=== PATIENT | female | born 1950 | race Caucasian/White ===

== ENCOUNTER 2023-09-12 14:26 | Inpatient (IN) | payer MEDICARE, SELFPAY ==
[2023-09-12] VITALS (37 sets, daily range): BP systolic 110–166; BP diastolic 61–93; PULSE 94–124; RESP 15–33; TEMP 36.6–37.1; O2SAT 90–100; BMI 24.0; BMI 23.8
--- NOTE | 2023-09-12 15:19 | XRR_ITS ---
PROCEDURE INFORMATION: Exam: XR Chest Exam date and time: 09/12/2023 3:26 PM Age: 72 years old Clinical indication: Shortness of breath; Patient HX: Severe SOB; Asthma TECHNIQUE: Imaging protocol: Radiologic exam of the chest. Views: 1 view. COMPARISON: No relevant prior studies available. FINDINGS: Lungs: Hyperinflated lungs. No consolidation. Pleural spaces: Unremarkable. No pleural effusion. No pneumothorax. Heart/Mediastinum: Unremarkable. No cardiomegaly. Bones/joints: Unremarkable. XR/XR chest 1V portable [id number] IMPRESSION: Hyperinflated lungs. Otherwise, no acute findings.
--- NOTE | 2023-09-12 15:24 | ECG_ITS ---
[facility] Test Date: 2023-09-12 Pat Name: Sofiya Domingo Department: Room: Gender: Female Manager Market Development: : 1950 Requested By: Svetlana Anderson Order Number: [id number] Reading MD: Precious Jacobo M.D. Measurements Intervals [place] Rate: 123 P: 76 OK: 136 QRS: 70 QRSD: 98 T: 49 QT: 299 QTc: 429 Interpretive Statements SINUS TACHYCARDIA MINIMAL ST DEPRESSION [0.025+ mV ST DEPRESSION] ABNORMAL RHYTHM ECG No previous ECG available for comparison Electronically Signed On 09-14-2023 18:43:46 PACKAGE DRIER by Precious Jacobo M.D. [id number]
--- NOTE | 2023-09-12 15:32 | ED_ITS ---
HPI - SOB/Dyspnea General: Chief Complaint: Shortness of Breath/Dyspnea Stated Complaint: SOB Time Seen by Provider: 09/12/23 15:14 History of Present Illness: HPI Narrative: Patient is a 72-year-old female that presents to the emergency department with shortness of breath and wheezing for several days. Patient reports symptoms just worsened today. Patient denies medical history. Patient is unable to talk in full sentences. Her spouse answers questions for us. He denies any medical history. She has an inhaler that she receives from a walk-in clinic. She has some type of respiratory issue. Unsure of its COPD or asthma. Patient is tachypneic, tachycardic, and hypoxic. Review of Systems Narrative: Unable to get a full review of systems. Patient denies fevers She reports shortness of breath, wheezing, cough. BELL and back pain intermittently Physical Exam Const: COMMON NORMALS: no acute distress, patient oriented x3 and alert GENERAL APPEARANCE: cooperative ORIENTATION/CONSCIOUSNESS: Yes awake, Yes oriented to person, Yes oriented to place and Yes oriented to time HENMT: COMMON NORMALS: normocephalic and atraumatic HEAD & SCALP: normocephalic and atraumatic FACE & SINUS: normal facial exam MOUTH: Normal oral and palatal mucosa present THROAT: posterior oropharynx normal Eye: COMMON NORMALS: Equal, round and reactive pupils present, EOMs intact bilaterally, conjunctivae normal and no scleral icterus GENERAL EYE: appearance normal, both eyes and all related structures ALIGNMENT: Yes alignment normal PERIORBITAL: periorbital findings normal CONJUNCTIVA: Yes conjunctivae normal PUPIL: Yes Equal, round and reactive pupils present Neck/C-Spine: COMMON NORMALS: full ROM GENERAL: Yes normal visual inspection Lymph: LYMPHATIC: no lymphadenopathy noted Chest: COMMONS NORMALS: normal inspection of the chest Breast/axilla inspection: Yes no chest deformity, asymmetry, normal contours, no nodules, masses, tenderness Resp: EFFORT & INSPECTION: No able to speak in complete sentences, Yes symmetric chest movement, Yes tachypneic, Yes respiratory distress, Yes labored, Yes retractions, Yes uses accessory muscles, Yes audible wheezes and Yes tripod positioning AUSCULTATION: wheezes and diminished lung sounds Cardio: COMMON NORMALS: regular rhythm and Peripheral pulses 2+ throughout RATE: tachycardic (120s) RHYTHM: regular rhythm PERIPHERAL PULSES: Peripheral pulses 2+ throughout GI: COMMON NORMALS: Normal to inspection, nondistended, normoactive bowel sounds present, Soft to palpation, non-tender and No hepatosplenomegaly present INSPECTION: Yes normal to inspection AUSCULTATION: Yes normoactive bowel sounds PALPATION: Yes Soft to palpation and Yes No hepatosplenomegaly present RECTAL EXAM: deferred Extremity: COMMON NORMALS: normal to inspection GENERAL: Yes normal exam except as noted Neuro: COMMON NORMALS: patient oriented x3 SENSORIUM/ORIENTATION: Yes alert, Yes oriented to person, Yes oriented to place and Yes oriented to time CRANIAL NERVES: Yes CN normal except as noted Psych: COMMON NORMALS: mental status grossly normal, Normal thought process present, cooperative, activity/motor behavior normal, denies homicidal ideation and denies suicidal ideation THOUGHT PROCESS: Normal thought process present Skin: COMMON NORMALS: no rashes or lesions noted, no wounds and turgor normal GENERAL SKIN EXAM: no rashes or lesions noted and turgor normal Course Vital Signs: Vital signs: Vital Signs Temperature 98.8 F 09/12/23 14:34 Pulse Rate 121 H 09/12/23 19:50 Respiratory Rate 18 09/12/23 19:50 Blood Pressure 110/77 09/12/23 19:50 Pulse Oximetry 98 09/12/23 19:50 Oxygen Delivery Me thod Nasal Cannula 09/12/23 18:39 Oxygen Flow Rate 4 09/12/23 18:39 Fraction of Inspir ed Oxygen 40 09/12/23 19:05 MDM - SOB/Dyspnea Medical Decision Making Patient was evaluated in the emergency department for shortness of breath t achypnea and hypoxia Patient has a differential diagnosis of COPD, COVID, influenza, pneumonia, asth ma. Patient denies fevers. She underwent laboratory evaluation reading treatments and ended up on BiPAP. I involved my attending early on in the case. He recommended the addition of CTA chest troponin series EKG and BMP. CTA reveals bronchial wall thickening suggestive of bronchitis with scattered areas of mucous plugging. There is hyperinflated lungs. Patient has negative COVID and influenza. We repeated her ABG which shows improvement in pH but still has a negative base. I spoke with the hospitalist who has accepted the patient and will admit to ICU. Family updated Dr. Whyte to place orders Lab Data 09/12/23 15:42 09/12/23 15:42 Labs/Radiology: Radiology Impressions Chest X-Ray 09/12/23 15:19 IMPRESSION: Hyperinflated lungs. Otherwise, no acute findings. Chest CTA 09/12/23 17:35 IMPRESSION: Bronchial wall thickening suggestive of bronchitis with scattered areas of mucous plugging. Laboratory Results WBC 10.79 10^3/uL (3.29-11.43) 09/12/23 15:42 RBC 4.85 10^6/uL (3.85-5.65) 09/12/23 15:42 Hgb 15.10 g/dL (11.27-16.99) 09/12/23 15:42 Hct 46.5 % (36-47) 09/12/23 15:42 MCV 95.9 fl (85-98) 09/12/23 15:42 MCH 31.1 pg (27-33) 09/12/23 15:42 MCHC 32.5 g/dL (30-55) 09/12/23 15:42 RDW 13.2 % (12.1-15.1) 09/12/23 15:42 Plt Count 282 10^3/cmm (157-399) 09/12/23 15:42 MPV 9.2 fL (7.4-10.4) 09/12/23 15:42 Neut % (Auto) 83.3 % 09/12/23 15:42 Lymph % (Auto) 5.4 % 09/12/23 15:42 Manati % (Auto) 9.4 % 09/12/23 15:42 Eos % (Auto) 1.0 % 09/12/23 15:42 Baso % (Auto) 0.6 % 09/12/23 15:42 Neut # (Auto) 8.99 10^3/uL (1.8-7.7) H 09/12/23 15:42 Lymph # (Auto) 0.6 10^3/uL (0.8-4.8) L 09/12/23 15:42 Manati # (Auto) 1.0 10^3/uL (0.2-0.9) H 09/12/23 15:42 Eos # (Auto) 0.1 10^3/uL (0.0-0.8) 09/12/23 15:42 Baso # (Auto) 0.1 10^3/uL (0.0-0.1) 09/12/23 15:42 Nucleated RBC % (auto) 0 % 09/12/23 15:42 Nucleated RBCs # 0.0 /100WBC 09/12/23 15:42 Specimen Type Arterial 09/12/23 20:05 Sample Site Radial, right 09/12/23 20:05 ABG pH 7.38 (7.35-7.45) 09/12/23 20:05 ABG pCO2 35.0 mmHg (35-45) 09/12/23 20:05 ABG pO2 121.0 mmHg (80.0-100.0) H 09/12/23 20:05 ABG PO2/FiO2 Ratio 0 09/12/23 20:05 ABG HCO3 20.8 mmol/L (22-26) L 09/12/23 20:05 ABG O2 Saturation 98.9 09/12/23 20:05 ABG Base Excess -3.6 mmol/L (-2.0-2.0) L 09/12/23 20:05 Arnel Test Pos 09/12/23 20:05 A-a O2 Gradient 15.8 mmHg (5-10) H 09/12/23 20:05 Hematocrit 45.0 % (37-47) 09/12/23 20:05 Hgb O2 Saturation 97.9 % (95-100) 09/12/23 20:05 Carboxyhemoglobin 0.4 %THgb (0.4-20.1) 09/12/23 20:05 Methemoglobin 0.7 % (0.4-1.5) 09/12/23 20:05 Total Hemoglobin 14.7 g/dL (12-16) 09/12/23 20:05 Sodium 140.0 mmol/L (131-143) 09/12/23 20:05 Potassium 3.0 mmol/L (3.5-5.0) L 09/12/23 20:05 Glucose 227.0 mg/dL (70-115) H 09/12/23 20:05 Ionized Calcium 1.2 mmol/L (1.1-1.4) 09/12/23 20:05 O2 Delivery Device Bipap 09/12/23 20:05 O2 Liters/Min 3.0 % 09/12/23 15:53 FiO2 40.0 % 09/12/23 20:05 Orthopedic Dentist ID [email or web address] 09/12/23 20:05 Sodium 137 mmol/L (136-145) 09/12/23 15:42 Potassium 3.8 mmol/L (3.5-5.1) 09/12/23 15:42 Chloride 103 mmol/L (98-107) 09/12/23 15:42 Carbon Dioxide 23 mmol/L (22-29) 09/12/23 15:42 Anion Gap 14.8 (5-19) 09/12/23 15:42 BUN 10 mg/dL (8-23) 09/12/23 15:42 Creatinine 0.6 mg/dL (0.5-0.9) 09/12/23 15:42 GFR Calculation Not Reportable 09/12/23 15:42 Glucose 143 mg/dL (65-115) H 09/12/23 15:42 Calculated Osmolality 286 mOsm/kg (285-295) 09/12/23 15:42 Calcium 9.1 mg/dL (8.5-10.5) 09/12/23 15:42 Total Bilirubin 0.3 mg/dL (0.15-1.2) 09/12/23 15:42 AST 20 U/L (0-32) 09/12/23 15:42 ALT 20 U/L (0-33) 09/12/23 15:42 Alkaline Phosphatase 113 U/L (35-105) H 09/12/23 15:42 Troponin T Baseline 7 ng/L (0-10) 09/12/23 15:42 Troponin T 120 Minute 11.17 ng/L (0-10) H 09/12/23 17:47 Delta Troponin T 4.17 ABS# (0-10) 09/12/23 17:47 NT-Pro-B Natriuret Pep 76 pg/mL (0-125) 09/12/23 15:42 Total Protein 7.6 g/dL (6.6-8.7) 09/12/23 15:42 Albumin 4.3 g/dL (3.5-5.2) 09/12/23 15:42 Globulin 3.3 g/dL (1.3-4.6) 09/12/23 15:42 Influenza Type A Ag negative (Negative) 09/12/23 18:21 Influenza Type B Ag negative (Negative) 09/12/23 18:21 SARS-CoV-2 Ag (Rapid) negative (Negative) 09/12/23 18:21 All radiology interpretation(s) finalized by discharge Discharge Plan Discharge Patient Disposition: Admitted As Inpatient Clinical Impression: Respiratory failure, Bronchitis, Hypoxia, Tachycardia Condition: Stable Discharge Diet: Advance as tolerated Discharge Activity: Resume usual activity Coding Level of Care Code ED Evp And Chief Operating Officer for Daisy Martinez
[2023-09-12] MEDS: ipratropium-albuterol 3 mL Neb INHALATION ×6 (15:41→18:39)
[2023-09-12] MEDS: methylPREDNISolone sod succ 125 MG in water for injection-sterile 2 ML 24 MG IVP (16:02)
[2023-09-12 16:07] LABS: Basophils # 0.1 10^3/uL (0.0-0.1); Basophils % 0.6 %; Eosinophils # 0.1 10^3/uL (0.0-0.8); Hematocrit 46.5 % (36-47); Lymphocytes # 0.6 10^3/uL (0.8-4.8); Lymphocytes % 5.4 %; Mean Corpuscular HGB Conc 32.5 g/dL (30-55); Mean Corpuscular Hemoglobin 31.1 pg (27-33); Mean Corpuscular Volume 95.9 fl (85-98); Mean Platelet Volume 9.2 fL (7.4-10.4); Monocytes % 9.4 %; Neutrophils # 8.99 10^3/uL (1.8-7.7); Neutrophils % 83.3 %; Nucleated Red Blood Cells % 0 %; Platelet Count 282 10^3/cmm (157-399); Red Blood Count 4.85 10^6/uL (3.85-5.65); Red Cell Distribution Width 13.2 % (12.1-15.1); White Blood Count 10.79 10^3/uL (3.29-11.43)
[2023-09-12 16:07] LABS: ABG PCO2 47.9 mmHg (35-45); Arterial Blood Gas Hematocrit 46.9 % (37-47); Base Excess ABG -3.2 mmol/L (-2.0-2.0); Blood Gas Allen Test Pos; Blood Gas Operator Identificat AMH; Blood Gas Sample Site Radial, left; Blood Gas Sample Type Arterial; Carboxyhemoglobin 1.1 %THgb (0.4-20.1); HCO3 ABG 23.7 mmol/L (22-26); HGB O2 Sat 94.3 % (95-100); Methemoglobin 0.6 % (0.4-1.5); Oxygen Device NC; PO2 ABG 79.4 mmHg (80.0-100.0); PO2 FiO2 Ratio Arterial Blood 0; Total Hemoglobin 15.3 g/dL (12-16)
[2023-09-12 16:12] LABS: Alanine Aminotransferase 20 U/L (0-33); Albumin Level 4.3 g/dL (3.5-5.2); Alkaline Phosphatase 113 U/L (35-105); Anion Gap 14.8 (5-19); Aspartate Amino Transferase 20 U/L (0-32); Blood Urea Nitrogen 10 mg/dL (8-23); Calcium 9.1 mg/dL (8.5-10.5); Carbon Dioxide 23 mmol/L (22-29); Chloride 103 mmol/L (98-107); Globulin 3.3 g/dL (1.3-4.6); Glucose 143 mg/dL (65-115); Osmolality Calculated 286 mOsm/kg (285-295); Potassium 3.8 mmol/L (3.5-5.1); Sodium 137 mmol/L (136-145); Total Bilirubin 0.3 mg/dL (0.15-1.2); Total Protein 7.6 g/dL (6.6-8.7)
--- NOTE | 2023-09-12 17:35 | CTR_ITS ---
PROCEDURE INFORMATION: Exam: CTA Chest With Contrast Exam date and time: 09/12/2023 6:05 PM Age: 72 years old Clinical indication: Shortness of breath and tachypnea; Patient HX: SOB with tachypnea. History of asthma. ; Additional info: SOB tachycardia TECHNIQUE: Imaging protocol: Computed tomographic angiography of the chest with contrast. Exam focused on the arteries. 3D rendering (Not supervised by radiologist): MIP and/or 3D reconstructed images were created by the technologist. Radiation optimization: All CT scans at this facility use at least one of these dose optimization techniques: automated exposure control; mA and/or kV adjustment per patient size (includes targeted exams where dose is matched to clinical indication); or iterative reconstruction. Contrast material: OMNI 350; Contrast volume: 61 ml; Contrast route: INTRAVENOUS (IV); REPORTING DATA: Count of CT and Cardiac NM exams in prior 12 months: This patient has received 0 known CTs and 0 known cardiac nuclear medicine studies in the 12 months prior to the current study. COMPARISON: CR (CHEST, ) 09/12/2023 3:26 PM RADIATION DOSE METRICS: Total DLP (mGy-cm): 189.12 FINDINGS: Pulmonary arteries: Normal. No pulmonary emboli. Aorta: Unremarkable. No aortic aneurysm. No aortic dissection. Lungs: Scattered areas of mucous plugging noted within the lungs. Bronchial wall thickening noted. No consolidation. No masses. Pleural spaces: Unremarkable. No pneumothorax. No pleural effusion. Heart: Unremarkable. No cardiomegaly. No pericardial effusion. Lymph nodes: Unremarkable. No enlarged lymph nodes. Bones/joints: Unremarkable. No acute fracture. Soft tissues: Unremarkable. CT/CT angio chest PE protcl [id number] IMPRESSION: Bronchial wall thickening suggestive of bronchitis with scattered areas of mucous plugging.
[2023-09-12 17:58] LABS: Troponin(5th) Baseline 7 ng/L (0-10)
[2023-09-12 18:08] LABS: NT Pro B Type Natriuretic Pept 76 pg/mL (0-125)
[2023-09-12] MEDS: iohexol 350 mg/mL 500 mL Btl (per mL) IV (18:08)
[2023-09-12 18:11] LABS: Troponin 5 2HR 11.17 ng/L (0-10); Troponin 5 2HR Delta 4.17 ABS# (0-10)
[2023-09-12] MEDS: magnesium sulfate premix 2 GM/50 ML PIGGYBACK IV (18:28)
[2023-09-12] MEDS: fentaNYL 50 mcg/mL INJ 2mL IVP (18:28)
[2023-09-12 19:03] LABS: SARS Covid-2 Antigen negative (Negative)
[2023-09-12 19:04] LABS: Influenza A by IFA negative (Negative); Influenza B by IFA negative (Negative)
--- NOTE | 2023-09-12 19:40 | ECG_ITS ---
[facility] Test Date: 2023-09-12 Pat Name: Sofiya Domingo Department: Room: Gender: Female Tax Investigator: : 1950 Requested By: Svetlana Anderson Order Number: [id number] Reading MD: Precious Jacobo M.D. Measurements Intervals [place] Rate: 124 P: 66 NM: 124 QRS: 24 QRSD: 101 T: 40 QT: 336 QTc: 483 Interpretive Statements SINUS TACHYCARDIA POSSIBLE LATERAL MYOCARDIAL INFARCTION , PROBABLY OLD [30 ms Q WAVE IN I/aVL/V5/V6] INFERIOR MYOCARDIAL INFARCTION , PROBABLY OLD [40+ ms Q WAVE AND/OR ST/T ABNORMALITY IN II/aVF] Compared to ECG 09/12/2023 18:20:37 Myocardial infarct finding now present Electronically Signed On 09-15-2023 1:54:09 LIVESTOCK HANDLER by Precious Jacobo M.D. [id number]
[2023-09-12] MEDS: sodium chloride 0.9% 1,000 ML 999 ML IV (20:12)
[2023-09-12 20:17] LABS: ABG PH Result 7.38 (7.35-7.45); Alveolar-Arterial Oxygen Gradi 15.8 mmHg (5-10); Base Excess ABG -3.6 mmol/L (-2.0-2.0); Blood Gas Allen Test Pos; Blood Gas Sample Site Radial, right; Blood Gas Sample Type Arterial; Carboxyhemoglobin 0.4 %THgb (0.4-20.1); HCO3 ABG 20.8 mmol/L (22-26); HGB O2 Sat 97.9 % (95-100); Ionized Calcium Level - ABG 1.2 mmol/L (1.1-1.4); Methemoglobin 0.7 % (0.4-1.5); Oxygen Device BIPAP; Oxygen Saturation ABG 98.9; PO2 FiO2 Ratio Arterial Blood 0; Total Hemoglobin 14.7 g/dL (12-16)
--- NOTE | 2023-09-12 21:18 | P.HP_ITS ---
Providers/Chief Complaint Admitting Physician: Yuri Molina Chief Complaint: SOB History of Present Illness Sofiya Domingo is a 72 year old female without much past medical history apart from a history of asthma, has an albuterol inhaler at home, has had progressive shortness of breath, wheezing over several days, coughing up yellowish sputum, on presentation found to be hypoxic, O2 sats in the 80s, not normally on oxygen. With sinus tachycardia, CT angiogram was obtained without PE. No consolidation. Noted bronchial wall thickening suggestive of bronchitis with scattered areas of mucous plugging. Diminished air entry, severe wheezing bilaterally, received multiple breathing treatments, and requiring BiPAP suppo rt. Review of Systems Const: Denies: fever(s), chills, body aches or malaise ENMT: Denies: throat pain Card: Denies: chest pain, edema, pre-syncope or dyspnea on exertion Resp: Reports: dyspnea, productive cough, wheezing and change in phlegm color; Denies: hemoptysis GI: Denies: abdominal pain, nausea, vomiting, diarrhea, constipation, hematochezia or melena : Denies: flank pain, urinary frequency or hematuria Musc: Denies: back pain, joint swelling or joint redness Skin/Breast: Denies: rash or new lesions Neuro: Denies: headache(s), numbness in extremities, weakness in extremities, dizziness, confusion or seizure-like activity Medications/Allergies Allergies Allergy/AdvReac Type Severity Reaction Status Date / Time azithromycin Allergy Unknown Unknown Verified 09/12/23 20:02 PFSH Acute PFSH: Medical History (Updated 09/12/23 @ 21:39 by Yuri Molina MD) Asthma Social History (Updated 09/12/23 @ 21:37 by Yuri Molina MD) Smoking and tobacco/nicotine status: never used tobacco/nicotine Marital status: Vitals/I&O/Wt Last Vital Signs Temp 98.8 F 09/12/23 14:34 Pulse 121 H 09/12/23 19:50 Resp 18 09/12/23 19:50 BP 110/77 09/12/23 19:50 Pulse Ox 98 09/12/23 19:50 O2 Del Method Nasal Cannula 09/12/23 18:39 O2 Flow Rate 4 09/12/23 18:39 FiO2 40 09/12/23 19:05 Weight last 48 hrs Weight 63.503 kg Physical Exam Narrative: Accompanied by her Const: COMMON NORMALS: patient oriented x3 and alert GENERAL APPEARANCE: cooperative ORIENTATION/CONSCIOUSNESS: Yes awake HENMT: COMMON NORMALS: oropharynx normal Neck/C-Spine: COMMON NORMALS: no JVD Resp: COMMON NORMALS: normal respiratory effort and clear to auscultation bilaterally AUSCULTATION: wheezes and diminished lung sounds OTHER: BiPAP Cardio: COMMON NORMALS: no JVD, regular rhythm, S1 normal heart sound present, S2 normal heart sound present and No murmurs present (Cardio) RHYTHM: regular rhythm HEART SOUNDS: S1 normal heart sound present and S2 normal heart sound present GI: COMMON NORMALS: Normal to inspection, nondistended, normoactive bowel sounds present, Soft to palpation and non-tender PALPATION: Yes Soft to palpation Extremity: COMMON NORMALS: no joint enlargement and no pedal edema Neuro: COMMON NORMALS: patient oriented x3 and moves all extremities SENSORIUM/ORIENTATION: Yes alert Skin: COMMON NORMALS: no rashes or lesions noted GENERAL SKIN EXAM: no rashes or lesions noted Data 09/12/23 15:42 09/12/23 15:42 A&P Assessment and plan (1) Respiratory failure: Secondary to combination bronchitis and severe asthma exacerbation, with diminished air entry, severe wheezing, productive cough, sputum color change. Hypoxic respiratory failure, saturation in 80s, not normally on oxygen. Reviewed vitals, BC, ABG, CMP, chest x-ray, CTA, troponin, EKG, respiratory viral panel. Discussed with ER physician, ER documentation reviewed. Noted positive for entero-/rhinovirus, likely trigger of her asthma exacerbation with suspected superimposed bacterial infection with purulent sputum with color change. Continue oxygen support, has had difficulty weaning off of BiPAP in ER, admitted to ICU. Wean down as tolerating, for now discussed with her clear liquid diet in case condition worsens and requires intubation/MV support. Discussed also CODE STATUS, she would want cardiopulmonary resuscitation in case of cardiopulmonary arrest, in case of worsened respiratory failure would like to discuss further in case intubation was needed. Repeat ABG obtained, appears to be trending in a good direction. Treat underlying conditions as below. (2) Bronchitis: Empiric antibiotic coverage with ceftriaxone with suspected superimposed bacterial bronchitis secondary to rhinovirus infection. Collect sputum culture. Breathing treatments. (3) Asthma exacerbation: Severe asthma exacerbation. Continue IV steroid at this time. Continue breathing treatments. Noted positive rhino/enterovirus. Maintain isolation. Antitussive as needed. Antiemetic as needed. PPI. DVT prophylaxis. Initial admission to ICU concern/risk for life-threatening deterioration. (4) Hypoxia: Secondary to the above. (5) Tachycardia: No PE. Secondary to the above. (6) Troponin level elevated: Mild elevation noted. Complete troponin EKG series. Monitor on telemetry. Attestations Medical Necessity Statement*: Admission of over 2 midnights anticipated for assessment management of respiratory failure, severe asthma exacerbation, bronchitis with suspected superimposed bacterial infection, rhino/enterovirus infection in a lady with underlying asthma. Coding Level of Care Code Critical Care >/= 30 minutes Critical care time (in minutes): 35 The high probability of a clinically significant, sudden or life threatening deterioration, as referenced in this documentation, required my full and direct attention, intervention and personal management. The critical care time shown is in addition to time spent performing any reported separately billable procedures and includes the following: [x] Data and vital sign review and interpretation [x ] Patient assessment, examination and intervention [x] Medication orders and management [x] Patient/Family updates as able [x] Care Coordination and Documentation. Diagnoses Respiratory failure J96.90 Bronchitis J40 Asthma exacerbation J45.901 Hypoxia R09.02 Tachycardia R00.0 Troponin level elevated R79.89
[2023-09-12 21:35] LABS: Adenovirus Not Detected (NOT DETECT); Chlamydia Pneumoniae Not Detected (NOT DETECT); Coronavirus 229E,HKU1,NL63,OC4 Not Detected (NOT DETECT); Human Metapneumovirus Not Detected (NOT DETECT); Human Rhinovirus/Enterovirus Detected (NOT DETECT); Influenza A Not Detected (NOT DETECT); Influenza A H1 Not Detected (NOT DETECT); Influenza A H1-2009 Not Detected (NOT DETECT); Influenza A H3 Not Detected (NOT DETECT); Influenza B Not Detected (NOT DETECT); Mycoplasma Pneumoniae Not Detected (NOT DETECT); Parainfluenza Virus Type 1 Not Detected (NOT DETECT); Parainfluenza Virus Type 2 Not Detected (NOT DETECT); Parainfluenza Virus Type 3 Not Detected (NOT DETECT); Parainfluenza Virus Type 4 Not Detected (NOT DETECT); Respiratory Syncytial Virus A Not Detected (NOT DETECT); Respiratory Syncytial Virus B Not Detected (NOT DETECT); SARS-COV-2 Not Detected (NOT DETECT)
[2023-09-12] MEDS: heparin 5,000 unit/mL INJ 1 mL 5000 UNIT SUBCUT (22:02)
[2023-09-12 22:05] LABS: Troponin 5 6HR 10.66 ng/L (0-10)
[2023-09-12 22:08] LABS: Troponin 5 6HR Delta 3.66 ng/L (0-12)
[2023-09-12] MEDS: cefTRIAXone 1,000 MG in sodium chloride 0.9% (plus) 50 ML 100 MG IV (22:15)
[2023-09-12] MEDS: methylPREDNISolone sod succ 40 MG in water for injection-sterile 1 ML 12 MG IVP (22:32)
[2023-09-12] MEDS: acetaminophen 325 mg Tablet 650 MG PO (22:33)
--- NOTE | 2023-09-12 23:16 | PC.NURSE ---
Protonix Patient refused protonix administration. Risks and benefits of medication explained; patient still refused. Dr. Molina notified.
--- NOTE | 2023-09-12 23:35 | ECG_ITS ---
[facility] Test Date: 2023-09-12 Pat Name: Sofiya Domingo Department: Room: [facility] Gender: Female Associate Loan Officer: : 1950 Requested By: Svetlana Anderson Order Number: [id number] Reading MD: Precious Jacobo M.D. Measurements Intervals [place] Rate: 120 P: 76 PA: 132 QRS: 78 QRSD: 96 T: 59 QT: 305 QTc: 431 Interpretive Statements SINUS TACHYCARDIA ABNORMAL RHYTHM ECG Compared to ECG 09/12/2023 15:24:15 ST (T wave) deviation no longer present Electronically Signed On 09-14-2023 8:15:16 AGRICULTURE SALES ACCOUNT MANAGER by Precious Jacobo M.D. [id number]
[2023-09-13] VITALS (37 sets, daily range): BP systolic 105–144; BP diastolic 59–83; PULSE 83–112; RESP 16–32; TEMP 36.5–36.6; O2SAT 92–99; BMI 24.1
[2023-09-13] MEDS: ipratropium-albuterol 3 mL Neb INHALATION ×2 (01:08→08:53)
[2023-09-13 04:06] LABS: Basophils % 0.2 %; Hematocrit 39.9 % (36-47); Lymphocytes # 0.3 10^3/uL (0.8-4.8); Lymphocytes % 5.2 %; Mean Corpuscular HGB Conc 33.3 g/dL (30-55); Mean Corpuscular Hemoglobin 31.4 pg (27-33); Mean Corpuscular Volume 94.1 fl (85-98); Mean Platelet Volume 9.2 fL (7.4-10.4); Monocytes # 0.1 10^3/uL (0.2-0.9); Monocytes % 1.9 %; Neutrophils # 5.98 10^3/uL (1.8-7.7); Neutrophils % 92.2 %; Nucleated Red Blood Cells % 0 %; Platelet Count 272 10^3/cmm (157-399); Red Blood Count 4.24 10^6/uL (3.85-5.65); Red Cell Distribution Width 13.2 % (12.1-15.1); White Blood Count 6.48 10^3/uL (3.29-11.43)
[2023-09-13 04:32] LABS: Alanine Aminotransferase 15 U/L (0-33); Albumin Level 3.8 g/dL (3.5-5.2); Alkaline Phosphatase 91 U/L (35-105); Anion Gap 12.5 (5-19); Aspartate Amino Transferase 16 U/L (0-32); Blood Urea Nitrogen 9 mg/dL (8-23); Calcium 8.4 mg/dL (8.5-10.5); Carbon Dioxide 23 mmol/L (22-29); Chloride 108 mmol/L (98-107); Globulin 2.5 g/dL (1.3-4.6); Glucose 171 mg/dL (65-115); Osmolality Calculated 293 mOsm/kg (285-295); Potassium 3.5 mmol/L (3.5-5.1); Sodium 140 mmol/L (136-145); Total Bilirubin 0.2 mg/dL (0.15-1.2); Total Protein 6.3 g/dL (6.6-8.7)
--- NOTE | 2023-09-13 10:54 | PC.NURSE ---
medication refused at this time per pt states she doesnt need any that medication ... i use natural herbs
--- NOTE | 2023-09-13 14:07 | P.DS_ITS ---
Discharge Providers Date of Admission: 09/12/23 20:24 Date of Discharge: September 13, 2023 Attending Provider at Admission: Yuri Molina Attending Provider at Discharge: Felicity Alvarez MD Diagnoses at Discharge Discharge Diagnosis (1) Respiratory failure: Status: Acute (2) Bronchitis: Status: Acute (3) Asthma exacerbation: Status: Acute (4) Hypoxia: Status: Resolved (5) Tachycardia: Status: Resolved (6) Troponin level elevated: Status: Resolved Reason for Visit Reason for Visit: SOB Hospital Course Hospital Course Patient admitted for asthma exacerbation and had severe wheezing on admission requiring BiPAP. She was noted positive for Enterra rhinovirus with suspected superimposed bacterial infection with purulent sputum with color change. Patient was started on ceftriaxone, DuoNeb and IV steroids. Home O2 eval was done at discharge and she did not qualify. Patient improved secondary admission and requested to go home. She was sent home with cefdinir and oral inhaler and prednisone 40 x 5 days. Patient in agreement with above plan. Physical Exam Narrative: NAD, no conversational dyspnea on room air lungs cta b/l abd soft family at bedside Discharge Data Studies Completed and Pending Completed Studies During Hospitalization Category Date Time Status CTA chest [CT angio chest PE protcl [id number]] Stat Cat Scan 09/12/23 17:35 Completed XR chest 1V portable [id number] Stat Exams 09/12/23 15:19 Completed Pending at discharge Category Date Time Status Complete Blood Count w/Auto AM LABS Lab 09/14/23 04:00 Ordered Complete Blood Count w/Auto AM LABS Lab 09/15/23 04:00 Ordered Comprehensive Metabolic Panel AM LABS Lab 09/14/23 04:00 Ordered Comprehensive Metabolic Panel AM LABS Lab 09/15/23 04:00 Ordered Sputum Culture and Gram Stain Routine Lab 09/12/23 21:29 Uncollected Radiology Impressions Chest X-Ray 09/12/23 15:19 IMPRESSION: Hyperinflated lungs. Otherwise, no acute findings. Chest CTA 09/12/23 17:35 IMPRESSION: Bronchial wall thickening suggestive of bronchitis with scattered areas of mucous plugging. Laboratory Results WBC 6.48 10^3/uL (3.29-11.43) 09/13/23 03:10 RBC 4.24 10^6/uL (3.85-5.65) 09/13/23 03:10 Hgb 13.30 g/dL (11.27-16.99) 09/13/23 03:10 Hct 39.9 % (36-47) 09/13/23 03:10 MCV 94.1 fl (85-98) 09/13/23 03:10 MCH 31.4 pg (27-33) 09/13/23 03:10 MCHC 33.3 g/dL (30-55) 09/13/23 03:10 RDW 13.2 % (12.1-15.1) 09/13/23 03:10 Plt Count 272 10^3/cmm (157-399) 09/13/23 03:10 MPV 9.2 fL (7.4-10.4) 09/13/23 03:10 Neut % (Auto) 92.2 % 09/13/23 03:10 Lymph % (Auto) 5.2 % 09/13/23 03:10 [place] % (Auto) 1.9 % 09/13/23 03:10 Eos % (Auto) 0.0 % 09/13/23 03:10 Baso % (Auto) 0.2 % 09/13/23 03:10 Neut # (Auto) 5.98 10^3/uL (1.8-7.7) 09/13/23 03:10 Lymph # (Auto) 0.3 10^3/uL (0.8-4.8) L 09/13/23 03:10 [place] # (Auto) 0.1 10^3/uL (0.2-0.9) L 09/13/23 03:10 Eos # (Auto) 0.0 10^3/uL (0.0-0.8) 09/13/23 03:10 Baso # (Auto) 0.0 10^3/uL (0.0-0.1) 09/13/23 03:10 Nucleated RBC % (auto) 0 % 09/13/23 03:10 Nucleated RBCs # 0.0 /100WBC 09/13/23 03:10 Specimen Type Arterial 09/12/23 20:05 Sample Site Radial, right 09/12/23 20:05 ABG pH 7.38 (7.35-7.45) 09/12/23 20:05 ABG pCO2 35.0 mmHg (35-45) 09/12/23 20:05 ABG pO2 121.0 mmHg (80.0-100.0) H 09/12/23 20:05 ABG PO2/FiO2 Ratio 0 09/12/23 20:05 ABG HCO3 20.8 mmol/L (22-26) L 09/12/23 20:05 ABG O2 Saturation 98.9 09/12/23 20:05 ABG Base Excess -3.6 mmol/L (-2.0-2.0) L 09/12/23 20:05 Arnel Test Pos 09/12/23 20:05 A-a O2 Gradient 15.8 mmHg (5-10) H 09/12/23 20:05 Hematocrit 45.0 % (37-47) 09/12/23 20:05 Hgb O2 Saturation 97.9 % (95-100) 09/12/23 20:05 Carboxyhemoglobin 0.4 %THgb (0.4-20.1) 09/12/23 20:05 Methemoglobin 0.7 % (0.4-1.5) 09/12/23 20:05 Total Hemoglobin 14.7 g/dL (12-16) 09/12/23 20:05 Sodium 140.0 mmol/L (131-143) 09/12/23 20:05 Potassium 3.0 mmol/L (3.5-5.0) L 09/12/23 20:05 Glucose 227.0 mg/dL (70-115) H 09/12/23 20:05 Ionized Calcium 1.2 mmol/L (1.1-1.4) 09/12/23 20:05 O2 Delivery Device Bipap 09/12/23 20:05 O2 Liters/Min 3.0 % 09/12/23 15:53 FiO2 40.0 % 09/12/23 20:05 Security Alarm Technician ID [email or web address] 09/12/23 20:05 Sodium 140 mmol/L (136-145) 09/13/23 03:10 Potassium 3.5 mmol/L (3.5-5.1) 09/13/23 03:10 Chloride 108 mmol/L (98-107) H 09/13/23 03:10 Carbon Dioxide 23 mmol/L (22-29) 09/13/23 03:10 Anion Gap 12.5 (5-19) 09/13/23 03:10 BUN 9 mg/dL (8-23) 09/13/23 03:10 Creatinine 0.5 mg/dL (0.5-0.9) 09/13/23 03:10 GFR Calculation Not Reportable 09/13/23 03:10 Glucose 171 mg/dL (65-115) H 09/13/23 03:10 Calculated Osmolality 293 mOsm/kg (285-295) 09/13/23 03:10 Calcium 8.4 mg/dL (8.5-10.5) L 09/13/23 03:10 Total Bilirubin 0.2 mg/dL (0.15-1.2) 09/13/23 03:10 AST 16 U/L (0-32) 09/13/23 03:10 ALT 15 U/L (0-33) 09/13/23 03:10 Alkaline Phosphatase 91 U/L (35-105) 09/13/23 03:10 Troponin T Baseline 7 ng/L (0-10) 09/12/23 15:42 Troponin T 120 Minute 11.17 ng/L (0-10) H 09/12/23 17:47 Delta Troponin T 4.17 ABS# (0-10) 09/12/23 17:47 Troponin T Hi Sens 6Hr 10.66 ng/L (0-10) H 09/12/23 21:28 Troponin T Hi Sens 6Hr Delta 3.66 ng/L (0-12) 09/12/23 21:28 NT-Pro-B Natriuret Pep 76 pg/mL (0-125) 09/12/23 15:42 Total Protein 6.3 g/dL (6.6-8.7) L 09/13/23 03:10 Albumin 3.8 g/dL (3.5-5.2) 09/13/23 03:10 Globulin 2.5 g/dL (1.3-4.6) 09/13/23 03:10 Nasal Influ A H1 2008 PCR Not detected (NOT DETECT) 09/12/23 19:47 Adenovirus (PCR) Not detected (NOT DETECT) 09/12/23 19:47 C. pneumoniae DNA (PCR) Not detected (NOT DETECT) 09/12/23 19:47 Coronavirus 229E (PCR) Not detected (NOT DETECT) 09/12/23 19:47 Human Metapneumovir PCR Not detected (NOT DETECT) 09/12/23 19:47 Influenza A (H1) PCR Not detected (NOT DETECT) 09/12/23 19:47 Influenza A (H3) PCR Not detected (NOT DETECT) 09/12/23 19:47 Influenza Type A Ag negative (Negative) 09/12/23 18:21 Influenza Type A (PCR) Not detected (NOT DETECT) 09/12/23 19:47 Influenza Type B Ag negative (Negative) 09/12/23 18:21 Influenza Type B (PCR) Not detected (NOT DETECT) 09/12/23 19:47 M. pneumoniae (PCR) Not detected (NOT DETECT) 09/12/23 19:47 Parainfluenza 1 (PCR) Not detected (NOT DETECT) 09/12/23 19:47 Parainfluenza 2 (PCR) Not detected (NOT DETECT) 09/12/23 19:47 Parainfluenza 3 (PCR) Not detected (NOT DETECT) 09/12/23 19:47 Parainfluenza 4 (PCR) Not detected (NOT DETECT) 09/12/23 19:47 RSV Type A (PCR) Not detected (NOT DETECT) 09/12/23 19:47 RSV Type B (PCR) Not detected (NOT DETECT) 09/12/23 19:47 Entero/Rhino (PCR) Detected (NOT DETECT) A 09/12/23 19:47 SARS-CoV-2 (PCR) Not detected (NOT DETECT) 09/12/23 19:47 SARS-CoV-2 Ag (Rapid) negative (Negative) 09/12/23 18:21 Vitals Last Vital Signs Temp 97.9 F 09/13/23 04:00 Pulse 91 09/13/23 12:00 Resp 22 H 09/13/23 12:00 BP 137/74 09/13/23 11:00 Pulse Ox 93 09/13/23 12:00 O2 Del Method Room Air 09/13/23 08:54 O2 Flow Rate 2 09/13/23 06:00 FiO2 40 09/13/23 01:10 Discharge Plan Discharge Patient Disposition: Home Condition: Stable Prescriptions: New benzonatate 100 mg Capsule 100 mg PO TID PRN (Reason: Cough) Qty: 10 0RF ipratropium-albuterol 0.5 mg-3 mg(2.5 mg base)/3 mL Solution For Nebulization 3 ml inhalation Q6H PRN (Reason: Shortness Of Breath) Qty: 10 0RF pantoprazole 40 mg Tablet,Delayed Release (Dr/Ec) 40 mg PO DAILY Qty: 10 0RF cefdinir 300 mg capsule 300 mg PO BID 5 Days Qty: 10 0RF prednisone 20 mg tablet 40 mg PO DAILY 5 Days Qty: 20 0RF Continued aspirin 325 mg Tablet 325 mg PO Q6H albuterol sulfate 90 mcg/actuation HFA aerosol inhaler 2 puff INHALATION Q6H Qty: 1 0RF Discharge Orders: Discharge Order (Routine); Ordered 09/13/23 Ordered By: Felicity Alvarez Discharge Diet: Advance as tolerated Discharge Activity: Resume usual activity Patient Instructions: Opioid Safety Activity Restrictions/Additional Instructions: F/u with PCP within 7 days of discharge Pleaese return to ER if you experience worsening shortness of breath, chest pain, fever or any other concerning symptoms. Discharge Attestations Time Spent in Discharge Care*: less than 30 min Quality Metrics Clinical Quality Measures [ No reported AMI, CVA or VTE this stay] Coding Level of Care Code Acute Code for Chg Fwd Diagnoses Respiratory failure J96.90 Bronchitis J40 Asthma exacerbation J45.901 Hypoxia R09.02 Tachycardia R00.0 Troponin level elevated R79.89
--- NOTE | 2023-09-13 14:40 | PC.NURSE ---
went over discharge medication with pt and daughter after reviewing stated she would take steroid for 5 days , explained protonix to help stomach and that ceftein was antibiotic... daughter reviewed and said mom you probably dont need any we will look into it.. explained medications have been sent to pharmacy
== END 2023-09-13 15:00 | disposition home or self-care (01) | DRG 189 ==
LOC: ER 20:28 → ICU 20:41
PROVIDERS: Admitting Provider Internal Medicine; Emergency Provider Nurse Practitioner; Visit Provider Internal Medicine
DX: J96.91 Respiratory failure, unspecified with hypoxia (principal); J45.901 Unspecified asthma with (acute) exacerbation; R00.0 Tachycardia, unspecified; R79.89 Other specified abnormal findings of blood chemistry; B97.89 Other viral agents as the cause of diseases classified elsewhere; B97.10 Unspecified enterovirus as the cause of diseases classified elsewhere
CPT/HCPCS: 36415; 36600; 71045; 71275; 80051; 80053; 82330; 82805; 83880; 84484; 85025; 87426; 87486; 87581; 87633; 87804; 93005; 94640; 94660; 94760; 96365; 96372; 96375; 96376; 99291; J0696; J1644; J2930; J3010; J3475; J7030; Q9967

== ENCOUNTER 2025-08-21 17:03 | Emergency (ER) | payer MEDICARE, SELFPAY ==
--- NOTE | 2025-08-21 17:08 | ECG_ITS ---
[facility] Date: 2025-08-21 Pat Name: Sofiya Domingo Department: Room: Gender: Female Data Quality Consultant: : 1950 Requested By: Jonathan Marcelino Order Number: [id number] Ludy MD: Kalli Luke M.D. Measurements Intervals [place] Rate: 60 P: 63 KS: 169 QRS: 65 QRSD: 95 T: 42 QT: 382 QTc: 384 Interpretive Statements SINUS RHYTHM Compared to ECG 09/12/2023 19:40:54 Sinus tachycardia no longer present Myocardial infarct finding no longer present Electronically Signed On 08-22-2025 19:17:06 CDT by Kalli Luke M.D. [email or web address]
[2025-08-21 17:10] VITALS: BP 145/72; PULSE 61; RESP 17; TEMP 36.6; O2SAT 98; BMI 23.1
--- NOTE | 2025-08-21 17:54 | XRR_ITS ---
PROCEDURE INFORMATION: Exam: XR Chest Exam date and time: 08/21/2025 6:06 PM Age: 74 years old Clinical indication: Pain; Chest pressure; Additional info: Chest pain TECHNIQUE: Imaging protocol: Radiologic exam of the chest. Views: 1 view. COMPARISON: CT angio chest PE protcl [id number] 09/12/2023 6:05 PM FINDINGS: Lungs: No infiltrates. No suspicious masses or nodules. Pleural spaces: No pleural effusions or pneumothorax. Heart/Mediastinum: Heart size within normal limits. No pulmonary vascular congestion. Vasculature: Atherosclerotic calcifications of the aortic arch. Bones/joints: No significant osseous lesion. No fractures. XR/XR chest 1V portable [id number] IMPRESSION: No acute cardiopulmonary findings radiographically.
[2025-08-21 18:28] LABS: Hematocrit 42.9 % (36-47); Hemoglobin 14.10 g/dL (11.27-16.99); Mean Corpuscular HGB Conc 32.9 g/dL (30-55); Mean Corpuscular Hemoglobin 32.0 pg (27-33); Mean Corpuscular Volume 97.3 fl (85-98); Nucleated Red Blood Cells % 0 %; Platelet Count 314 10^3/cmm (157-399); Red Blood Count 4.41 10^6/uL (3.85-5.65); White Blood Count 9.59 10^3/uL (3.29-11.43)
[2025-08-21 18:44] LABS: Troponin(5th) Baseline 7 ng/L (0-10)
[2025-08-21 18:46] LABS: Alanine Aminotransferase 17 U/L (0-33); Albumin Level 4.4 g/dL (3.5-5.2); Alkaline Phosphatase 105 U/L (35-105); Anion Gap 15.8 (5-19); Aspartate Amino Transferase 18 U/L (0-32); Blood Urea Nitrogen 21 mg/dL (8-23); Calcium 9.5 mg/dL (8.5-10.5); Carbon Dioxide 25 mmol/L (22-29); Chloride 99 mmol/L (98-107); Creatinine Clr Calc Pharmacy 56.6672; Globulin 2.6 g/dL (1.3-4.6); Glucose 101 mg/dL (65-115); Osmolality Calculated 285 mOsm/kg (285-295); Potassium 3.8 mmol/L (3.5-5.1); Sodium 136 mmol/L (136-145); Total Protein 7.0 g/dL (6.6-8.7)
[2025-08-21 19:00] VITALS: BP 124/69; PULSE 66; O2SAT 98
[2025-08-21 20:08] VITALS: BP 134/75; PULSE 72; O2SAT 96
--- NOTE | 2025-08-21 21:53 | W.ED.GENADLT ---
HPI - General Adult General: Chief complaint: General Medical Stated complaint: cp, tingling and numbness in R arm up into neck Time Seen by Provider: 08/21/25 19:23 History of Present Illness: 74 yo F presented with right shoulder pain that began this morning, worsening with any arm movement. Pain has been present off and on for months but acutely intensified today. While picking up yard debris, patient developed shortness of breath and returned inside to use a nebulizer around 3 pm; shortness of breath improved but shoulder pain persisted. During daughter-administered shockwave therapy to the right shoulder (low intensity), patient became pale, diaphoretic, and dizzy. Patient sought ER evaluation out of concern for cardiac issues. Denies current chest pain per conversation context; reports ongoing shoulder pain. ROS notable for earlier shortness of breath; no wheeze reported by provider on exam. Related Data Home Medications ?Medication ?Instructions ?Recorded ?Confirmed aspirin 325 mg tablet 325 mg PO Q6H 09/13/23 09/13/23 Previous Rx's ?Medication ?Instructions ?Recorded albuterol sulfate 90 mcg/actuation 2 puff inhalation Q6H #1 unit 09/13/23 aerosol inhaler benzonatate 100 mg capsule 100 mg PO TID PRN Cough #10 caps 09/13/23 ipratropium 0.5 mg-albuterol 3 mg 3 ml inhalation Q6H PRN Shortness 09/13/23 (2.5 mg base)/3 mL nebulization Of Breath #10 mL soln pantoprazole 40 mg tablet,delayed 40 mg PO DAILY #10 tabs 09/13/23 release Allergies Allergy/AdvReac Type Severity Reaction Status Date / Time azithromycin Allergy Unknown Unknown Verified 09/12/23 20:02 [facility] ED PFSH: Medical History (Updated 08/21/25 @ 19:59 by Jonathan Simental DO) Asthma Social History (Updated 09/12/23 @ 21:37 by Yuri Molina MD) Smoking and tobacco/nicotine status: never used tobacco/nicotine Marital status: Physical Exam Const: COMMON NORMALS: no acute distress, patient oriented x3 and alert HENMT: COMMON NORMALS: normocephalic and atraumatic HEAD & SCALP: normocephalic and atraumatic Eye: COMMON NORMALS: Equal, round and reactive pupils present, EOMs intact bilaterally and no scleral icterus PUPIL: Yes Equal, round and reactive pupils present Resp: COMMON NORMALS: normal respiratory effort and No retractions Cardio: COMMON NORMALS: regular rate, regular rhythm and No murmurs present (Cardio) RATE: regular rate RHYTHM: regular rhythm GI: COMMON NORMALS: Normal to inspection, nondistended, normoactive bowel sounds present, Soft to palpation and non-tender PALPATION: Yes Soft to palpation Extremity: OTHER: Right shoulder with decreased anterior deltoid/biceps bulk compared to left; limited range of motion; pain with movement. Neuro: COMMON NORMALS: patient oriented x3 SENSORIUM/ORIENTATION: Yes alert Skin: COMMON NORMALS: no rashes or lesions noted GENERAL SKIN EXAM: no rashes or lesions noted Course Vital Signs: Vital signs: Vital Signs Temperature 97.8 F 08/21/25 17:10 Pulse Rate 72 08/21/25 20:08 Respiratory Rate 17 08/21/25 17:10 Blood Pressure 134/75 08/21/25 20:08 Pulse Oximetry 96 08/21/25 20:08 Oxygen Delivery Me thod Room Air 08/21/25 19:00 [facility] - General Adult Medical Decision Making 74 yo F with months-long right shoulder pain acutely worsened today, plus transient shortness of breath and an episode of pallor/diaphoresis/dizziness during shockwave therapy. Shortness of breath improved after nebulizer use; persistent shoulder pain prompted ER visit. EKG: Time?1708?sinus rhythm, rate of 60, no ST segment elevation or depression, no T wave inversions, QTc = 384 PE: Lungs clear without wheeze; right shoulder with decreased anterior muscle bulk, limited range of motion, and pain. Labs normal; troponin normal at approximately six hours from onset. EKG normal. Chest X-ray normal. No abnormal lab flags reported. Differential diagnosis includes acute coronary syndrome/myocardial infarction considered given symptoms (shoulder pain, diaphoresis, shortness of breath) but felt unlikely with normal EKG, normal six-hour troponin, and normal chest X-ray/labs. Suspected rotator cuff or overuse-related shoulder pathology given muscle atrophy and pain with movement. Plan discussed: cardiac workup reassuring and no further acute cardiac intervention planned. Consider outpatient shoulder MRI and orthopedic evaluation for suspected rotator cuff pathology. No additional ER therapies or tests documented as planned. In short, patient suffered exacerbation of chronic musculoskeletal inflammation of the right shoulder. Fortunately cardiac workup is noncontributory and I do not suspect ACS, PE, or any other emergent process. She be discharged in stable and improved condition with follow-up to orthopedics not emergently. Lab Data 08/21/25 13:07 08/21/25 13:07 Radiology Impressions Chest X-Ray 08/21/25 17:54 IMPRESSION: No acute cardiopulmonary findings radiographically. Laboratory Results WBC 9.59 10^3/uL (3.29-11.43) 08/21/25 13:07 RBC 4.41 10^6/uL (3.85-5.65) 08/21/25 13:07 Hgb 14.10 g/dL (11.27-16.99) 08/21/25 13:07 Hct 42.9 % (36-47) 08/21/25 13:07 MCV 97.3 fl (85-98) 08/21/25 13:07 MCH 32.0 pg (27-33) 08/21/25 13:07 MCHC 32.9 g/dL (30-55) 08/21/25 13:07 RDW 13.3 % (12.1-15.1) 08/21/25 13:07 Plt Count 314 10^3/cmm (157-399) 08/21/25 13:07 MPV 9.1 fL (7.4-10.4) 08/21/25 13:07 Neut % (Auto) 70.8 % 08/21/25 13:07 Lymph % (Auto) 17.1 % 08/21/25 13:07 [place] % (Auto) 9.1 % 08/21/25 13:07 Eos % (Auto) 1.9 % 08/21/25 13:07 Baso % (Auto) 0.8 % 08/21/25 13:07 Neut # (Auto) 6.79 10^3/uL (1.8-7.7) 08/21/25 13:07 Lymph # (Auto) 1.6 10^3/uL (0.8-4.8) 08/21/25 13:07 [place] # (Auto) 0.9 10^3/uL (0.2-0.9) 08/21/25 13:07 Eos # (Auto) 0.2 10^3/uL (0.0-0.8) 08/21/25 13:07 Baso # (Auto) 0.1 10^3/uL (0.0-0.1) 08/21/25 13:07 Nucleated RBC % (auto) 0 % 08/21/25 13:07 Nucleated RBCs # 0.0 /100WBC 08/21/25 13:07 Sodium 136 mmol/L (136-145) 08/21/25 13:07 Potassium 3.8 mmol/L (3.5-5.1) 08/21/25 13:07 Chloride 99 mmol/L (98-107) 08/21/25 13:07 Carbon Dioxide 25 mmol/L (22-29) 08/21/25 13:07 Anion Gap 15.8 (5-19) 08/21/25 13:07 BUN 21 mg/dL (8-23) 08/21/25 13:07 Creatinine 0.6 mg/dL (0.5-0.9) 08/21/25 13:07 GFR Calculation Not Reportable 08/21/25 13:07 Glucose 101 mg/dL (65-115) 08/21/25 13:07 Calculated Osmolality 285 mOsm/kg (285-295) 08/21/25 13:07 Calcium 9.5 mg/dL (8.5-10.5) 08/21/25 13:07 Total Bilirubin 0.3 mg/dL (0.15-1.2) 08/21/25 13:07 AST 18 U/L (0-32) 08/21/25 13:07 ALT 17 U/L (0-33) 08/21/25 13:07 Alkaline Phosphatase 105 U/L (35-105) 08/21/25 13:07 Troponin T Baseline 7 ng/L (0-10) 08/21/25 13:07 Total Protein 7.0 g/dL (6.6-8.7) 08/21/25 13:07 Albumin 4.4 g/dL (3.5-5.2) 08/21/25 13:07 Globulin 2.6 g/dL (1.3-4.6) 08/21/25 13:07 All radiology interpretation(s) finalized by discharge Discharge Plan Discharge Patient Disposition: Home Clinical Impression: Arthralgia of right shoulder region Condition: Stable Prescriptions: No Action aspirin 325 mg Tablet 325 mg PO Q6H benzonatate 100 mg Capsule 100 mg PO TID PRN (Reason: Cough) Qty: 10 0RF ipratropium-albuterol 0.5 mg-3 mg(2.5 mg base)/3 mL Solution For Nebulization 3 ml inhalation Q6H PRN (Reason: Shortness Of Breath) Qty: 10 0RF pantoprazole 40 mg Tablet,Delayed Release (Dr/Ec) 40 mg PO DAILY Qty: 10 0RF albuterol sulfate 90 mcg/actuation HFA aerosol inhaler 2 puff INHALATION Q6H Qty: 1 0RF Discharge Orders: Discharge ED (Routine); Ordered 08/21/25 Ordered By: Jonathan Simental Referrals: Josey Crenshaw [Primary Care Provider, Wound Care] Patient Instructions: Shoulder Pain (ED), Patient Portal & Chloe Instructions Print Language: Greenlandic Coding Level of Care Code ED Regular Senior Care Provider for Daisy Martinez
== END 2025-08-21 20:09 | disposition home or self-care (01) ==
PROVIDERS: Emergency Provider Student in an Organized Health Care Education/Training Program; PCP Nurse Practitioner Family
DX: M25.511 Pain in right shoulder (principal); Z79.82 Long term (current) use of aspirin
CPT/HCPCS: 36415; 71045; 80053; 84484; 85025; 93005; 99285